=== PATIENT | female | born 1960 | race Caucasian/White ===

== ENCOUNTER 2021-10-22 13:34 | Observation (INO) ==
[2021-10-22 16:12] LABS: Basophils # 0.1 K/mcL (0.0-0.2); Basophils % 0.9 %; Eosinophils # 0.5 K/mcL (0.0-0.6); Eosinophils % 5.5 %; Hemoglobin 14.4 g/dL (11.5-15.4); Immature Granulocytes % 0.2 % (0-4); Lymphocytes # 1.8 K/mcL (0.6-4.6); Lymphocytes % 20.5 %; Mean Corpuscular HGB Conc 33.5 g/dL (31.6-35.5); Mean Corpuscular Hemoglobin 30.4 pg (28.0-33.3); Mean Corpuscular Volume 90.9 fL (83.0-100.0); Mean Platelet Volume 9.3 fL (9.4-12.4); Monocytes # 0.5 K/mcL (0.0-1.3); Monocytes % 5.8 %; Neutrophils # 5.9 K/mcL (1.6-8.9); Platelet Count 239 K/mcL (140-400); Red Blood Count 4.73 M/mcL (3.82-4.97); Red Cell Distribution Width 12.3 % (11.5-14.5); Segmented Neutrophils % 67.1 %; White Blood Count 8.8 K/mcL (4.3-11.1)
[2021-10-22 17:18] LABS: Troponin I < 0.03 ng/mL (< 0.04)
[2021-10-22 17:25] LABS: BUN/Creatinine Ratio 12 (6-26); Blood Urea Nitrogen 12 mg/dL (8-23); Calcium 9.5 mg/dL (8.6-10.3); Carbon Dioxide 25 mEq/L (23-29); Chloride 107 mEq/L (98-107); Glucose 99 mg/dL (70-105); Osmolality,Calculated 290 (280-300); Sodium 140 mEq/L (136-145)
[2021-10-22] MEDS ORDERED: Ipratropium/Albuterol Neb 3 ML IH ONE (18:41)
[2021-10-22] MEDS ORDERED: Aspirin 325 MG TABLET PO ONE (22:20)
[2021-10-22] MEDS ORDERED: methylPREDNISolone 125 MG/2 ML VIAL IVP ONE (23:03)
[2021-10-22] MEDS: Levalbuterol Neb 1.25 MG/3 ML IH SCH ×2 (23:08→23:22)
[2021-10-22] MEDS ORDERED: *HR* LORazepam 2 MG/ML VIAL IVP ONE (23:09)
[2021-10-22] MEDS ORDERED: Naloxone 0.4 MG/ML INJ IVP PRN (23:10)
[2021-10-22] MEDS ORDERED: Acetaminophen 325 MG TABLET PO PRN (23:10)
[2021-10-22] MEDS ORDERED: Azithromycin 500 MG in 0.9 % Sodium Chloride 250 ML IVPB SCH (23:45)
[2021-10-23] MEDS: Famotidine 20 MG TABLET PO SCH ×2 (00:26→08:20)
[2021-10-23 00:55] LABS: Bilirubin,Urine Negative (Negative); Blood,Urine Negative (Negative); Clarity,Urine Turbid (Clear); Color,Urine Light-Yellow (Yellow); Glucose,Urine (UA) 30 mg/dL (Normal); Ketones,Urine Negative (Negative); Specific Gravity,Urine 1.022 (1.010-1.025)
[2021-10-23 00:56] LABS: Bacteria,Urine Few per hpf (None-Few); Granular Casts,Urine Few per lpf (None Seen); Hyaline Casts,Urine Few per lpf (None Seen); Leukocyte Esterase,Urine Small (Negative); Mucus,Urine Few per lpf (None-Few); Nitrite,Urine Negative (Negative); Protein,Urine Trace mg/dL (Neg-Trace); RBC,Urine 0-3 per hpf (0-3); Squamous Epithelial Cell,Urine Moderate per hpf (None-Few); Urobilinogen,Urine Normal (Normal); WBC,Urine 0-3 per hpf (0-3)
[2021-10-23 01:46] LABS: Influenza A PCR Negative (Negative); Influenza B PCR Negative (Negative); Resp. Syncytial Virus PCR Negative (Negative)
[2021-10-23 01:48] LABS: SARS-CoV-2 by PCR (In House) Negative (Negative)
[2021-10-23 03:31] VITALS: BP 146/71; PULSE 69; TEMP 98.3
[2021-10-23] MEDS: Levalbuterol Neb 1.25 MG/3 ML IH SCH (03:36)
[2021-10-23 03:37] VITALS: O2SAT 94
[2021-10-23] MEDS ORDERED: *HR* Heparin 5,000 UNIT/ML VIAL SQ SCH (06:00)
[2021-10-23 06:59] LABS: Hematocrit 41.6 % (35.3-44.9); Hemoglobin 13.7 g/dL (11.5-15.4); Mean Corpuscular HGB Conc 32.9 g/dL (31.6-35.5); Mean Corpuscular Hemoglobin 30.5 pg (28.0-33.3); Mean Corpuscular Volume 92.7 fL (83.0-100.0); Mean Platelet Volume 9.5 fL (9.4-12.4); Platelet Count 208 K/mcL (140-400); Red Blood Count 4.49 M/mcL (3.82-4.97); Red Cell Distribution Width 12.2 % (11.5-14.5)
[2021-10-23 07:07] LABS: INR 1.1; Prothrombin Time 11.9 Seconds (9.4-12.1)
[2021-10-23 07:10] LABS: Activated Partial Thrombo Time 27.2 Seconds (26.0-36.0)
[2021-10-23 07:20] LABS: Calcium 9.3 mg/dL (8.6-10.3); Chol/HDL Ratio 3.9 (0-4.9); Magnesium 2.1 mg/dL (1.6-2.6); Potassium 3.8 mEq/L (3.5-5.1)
[2021-10-23 07:23] LABS: Troponin I < 0.03 ng/mL (< 0.04)
[2021-10-23 07:34] LABS: Thyroid Stimulating Hormone 1.268 mcIU/mL (0.340-5.600)
[2021-10-23] MEDS ORDERED: methylPREDNISolone 125 MG/2 ML VIAL IVP SCH (08:00)
[2021-10-23] MEDS ORDERED: predniSONE 20 MG TABLET PO SCH (09:00)
[2021-10-23 10:32] LABS: Estimated Average Glucose 108 mg/dl; Hemoglobin A1C 5.4 %
== END 2021-10-23 11:08 | disposition home or self-care (01) ==
LOC: EMEROOARM 13:34 → 3BNU 13:34
PROVIDERS: ADMIT Internal Medicine; ATTEND Internal Medicine